=== PATIENT | female | born 1980 | race American Indian/Alaskan Native ===

== ENCOUNTER 2016-08-19 11:07 | Emergency (ER) | payer MEDICARE ==
[2016-08-19 11:48] VITALS: BP 157/119
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
[2016-08-19 12:30] LABS: Basophils % (Auto) 0.4 % (0.0-1.8); Eosinophils % (Auto) 0.7 % (0.0-4.3); Hematocrit 36.4 % (30.3-42.9); Hemoglobin 11.7 gm/dl (10.1-14.3); Mean Corpuscular HGB Conc 32 % (30-34); Mean Corpuscular Volume 75 fl (79-97); Platelet Count 290 K/mm3 (140-440); Red Blood Count 4.88 M/mm3 (3.65-5.03); White Blood Count 13.4 K/mm3 (4.5-11.0)
[2016-08-19 12:35] LABS: Mean Corpuscular Hemoglobin 24 pg (28-32); Red Cell Distribution Width 20.6 % (13.2-15.2)
[2016-08-19 12:38] LABS: Amylase 92 units/L (27-131)
[2016-08-19 12:40] LABS: Alanine Aminotransferase 6 units/L (7-56); Albumin 3.9 g/dL (3.9-5); Albumin/Globulin Ratio 1.3 %; Alkaline Phosphatase 58 units/L (35-129); Bilirubin,Total 0.5 mg/dL (0.1-1.2); Blood Urea Nitrogen 9 mg/dL (7-17); Calcium 8.6 mg/dL (8.4-10.2); Carbon Dioxide 23 mmol/L (22-30); Chloride 103.3 mmol/L (98-107); Glucose 79 mg/dL (65-100); Lipase 40 units/L (13-60); Potassium 3.4 mmol/L (3.6-5.0); Sodium 141 mmol/L (137-145)
[2016-08-19 12:42] LABS: Anion Gap 18 mmol/L
[2016-08-19 12:56] LABS: Erythrocyte Sedimentation Rate 12 mm/Hr (0-20)
[2016-08-19 13:23] LABS: Bilirubin,Urine NEG (Negative); Blood,Urine NEG (Negative); Ketones,Urine NEG (Negative); Leukocyte Esterase,Urine NEG (Negative); Mucus,Urine FEW /HPF; Nitrite,Urine NEG (Negative); Protein,Urine <15 mg/dL mg/dL (Negative); Urobilinogen,Urine < 2.0 mg/dL (<2.0); WBC,Urine < 1.0 /HPF (0.0-6.0)
--- NOTE | 2016-08-19 13:31 | XRay Report ---
LEFT SHOULDER: Routine views demonstrate normal bony and soft tissue structures with normal joint alignment of the shoulder. IMPRESSION: Normal study.
[2016-08-19 13:32] LABS: C-Reactive Protein < 0.03 mg/dL (0.00-1.30)
--- NOTE | 2016-08-21 10:55 | ED Elopement Review ---
ED Pt Elopement review - Results review Lab results: Laboratory Tests 08/19/16 08/19/16 08/19/16 12:03 12:03 12:03 WBC 13.4 H RBC 4.88 Hgb 11.7 Hct 36.4 MCV 75 L MCH 24 L MCHC 32 RDW 20.6 H Plt Count 290 Lymph % (Auto) 31.7 [place] % (Auto) 4.7 Eos % (Auto) 0.7 Baso % (Auto) 0.4 Lymph # 4.2 [place] # 0.6 Eos # 0.1 Baso # 0.1 Seg Neutrophils % 62.5 Seg Neutrophils # 8.4 H ESR 12 Carbon Dioxide 23 BUN 9 Creatinine 0.4 L Estimated GFR > 60 BUN/Creatinine Ratio 22.50 Glucose 79 Calcium 8.6 Total Bilirubin 0.5 AST 14 ALT 6 L Alkaline Phosphatase 58 C-Reactive Protein Total Protein 7.0 Albumin 3.9 Albumin/Globulin Ratio 1.3 Amylase Lipase 40 HCG, Qual Negative Urine Color Urine Turbidity Urine pH Ur Specific [place] Urine Protein Urine Glucose (UA) Urine Ketones Urine Blood Urine Nitrite Urine Bilirubin Urine Urobilinogen Ur Leukocyte Esterase Urine WBC (Auto) Urine RBC (Auto) U Epithel Cells (Auto) Urine Mucus 08/19/16 08/19/16 12:03 13:01 WBC RBC Hgb Hct MCV MCH MCHC RDW Plt Count Lymph % (Auto) [place] % (Auto) Eos % (Auto) Baso % (Auto) Lymph # [place] # Eos # Baso # Seg Neutrophils % Seg Neutrophils # ESR Carbon Dioxide BUN Creatinine Estimated GFR BUN/Creatinine Ratio Glucose Calcium Total Bilirubin AST ALT Alkaline Phosphatase C-Reactive Protein < 0.03 Total Protein Albumin Albumin/Globulin Ratio Amylase 92 Lipase HCG, Qual Urine Color Yellow Urine Turbidity Clear Urine pH 7.0 Ur Specific [place] 1.014 Urine Protein <15 mg/dl Urine Glucose (UA) Neg Urine Ketones Neg Urine Blood Neg Urine Nitrite Neg Urine Bilirubin Neg Urine Urobilinogen < 2.0 Ur Leukocyte Esterase Neg Urine WBC (Auto) < 1.0 Urine RBC (Auto) 1.0 U Epithel Cells (Auto) 1.0 Urine Mucus Few - Call Back decision Pt Call Back Decision: No action required
== END 2016-08-19 17:11 | disposition left against medical advice (07) ==
LOC: ED 11:07
DX: R10.9 Unspecified abdominal pain (principal); R19.7 Diarrhea, unspecified; M25.512 Pain in left shoulder; M79.602 Pain in left arm; M79.642 Pain in left hand; R11.10 Vomiting, unspecified; Z53.21 Procedure and treatment not carried out due to patient leaving prior to being seen by health care provider
CPT/HCPCS: 36415; 80053; 81001; 82150; 83690; 84703; 85025; 85652; 86140